=== PATIENT | male | born 1995 ===

== ENCOUNTER 2018-05-26 12:42 | Emergency (ER) | payer SELFPAY ==
[2018-05-26 12:47] VITALS: RESP 16
[2018-05-26] MEDS ORDERED: Oxycodone/Acetaminophen 5/325 mg Tab PO STA ×2 (12:55→14:28)
[2018-05-26] MEDS ORDERED: Oxycodone/Acetaminophen 5/325 mg Tab ONE ×2 (13:12→14:31)
--- NOTE | 2018-05-26 13:12 | ED PDOC ---
Upper Extremity Pain/Injury Time Seen by Provider: 05/26/18 12:50 Chief Complaint (Nursing): Abnormal Skin Integrity Chief Complaint (Provider): Right Hand Injury History Per: Patient, [employer] Executive ([place], #[id number]) History/Exam Limitations: no limitations Onset/Duration Of Symptoms: Mins (just prior to arrival) Current Symptoms Are (Timing): Still Present Additional Complaint(s): 22 year old male presents to the ED for evaluation of a right hand injury. Patient reports that just prior to arrival, he was at work on a ladder when he was about to slip, so he grabbed on to a metal surface above him, causing lacerations to his right middle and ring digits. Denies other injuries. Right hand dominant Tetanus up to date (updated approx. 1 month ago) PMD: none provided Past Medical History Reviewed: Historical Data, Nursing Documentation, Vital Signs Vital Signs: Last Vital Signs Temp 98.7 F 05/26/18 12:45 Pulse 87 05/26/18 12:45 Resp 16 05/26/18 12:45 BP 131/66 05/26/18 12:45 Pulse Ox 98 05/26/18 12:45 - Medical History PMH: No Chronic Diseases - Surgical History Surgical History: No Surg Hx - Family History Family History: States: Unknown Family Hx - Social History Current smoker - smoking cessation education provided: No Alcohol: None Drugs: Denies - Immunization History Hx Tetanus Toxoid Vaccination: Yes - Home Medications Home Medications: Ambulatory Orders Medication Instructions Recorded Amoxicillin/Clavulanate [Augmentin 1 tab PO BID #20 tab 05/26/18 875 MG-125 MG] RX: Ibuprofen [Motrin Tab] 800 mg PO TID PRN #12 tab 05/26/18 - Allergies Allergies/Adverse Reactions: Allergies Allergy/AdvReac Type Severity Reaction Status Date / Time No Known Allergies Allergy Verified 05/26/18 12:44 Review of Systems ROS Statement: Except As Marked, All Systems Reviewed And Found Negative Skin: Positive for: Other (right middle finger and ring finger lacerations ) Physical Exam - Reviewed Nursing Documentation Reviewed: Yes Vital Signs Reviewed: Yes - Physical Exam Extremity: Positive for: Normal ROM (full ROM actively of all digits right hand), Capillary Refill (less than 2 seconds), Other (1cm flap laceration on palmar surface of proximal phalanx of right fourth digit with no active bleeding; 2cm avulsion laceration on palmar surface of right third digit on middle phalanx extending over the third mcp) - ECG O2 Sat by Pulse Oximetry: 98 (RA) Pulse Ox Interpretation: Normal - Radiology X-Ray: Interpreted by Me (R hand x-ray) X-Ray Interpretation: No Acute Disease (confirmed by radiology report) Medical Decision Making Medical Decision Making: Time: 1255 Initial Impression: right hand injury Initial Plan: --Percocet 1 tab PO --Right hand XR 1315 XR reviewed by HOLLIS: no fracture or foreign body [address] Aguayo who requested pictures be sent. [address] Aguayo received the pictures, he advised a surgical orderly come down for wound closure. Spoke with surgical orderly Dr. Solis who is agreeable to evaluate pt in ED. 1408 Used medical services manager #[id number] to inform pt that a specialist is agreeable to come down to evaluate his hand. All questions answered and patient verbalizes agreement with plan. [address] Solis at bedside and performed suture repair. Requests pt. be prescribed Augmentin and to f/u with Dr. Aguayo in 1 week. Advised to f/u with Dr. Aguayo in 1 week for further evaluation. Wound care instructions provided. Scribe Attestation: Documented by Yaquelin Ching, acting as a scribe for Vinod Gross PA-C. Provider Scribe Attestation: All medical record entries made by the Scribe were at my direction and personal ly dictated by me. I have reviewed the chart and agree that the record accurately reflects my personal performance of the history, physical exam, medical decision making, and the department course for this patient. I have also personally directed, reviewed, and agree with the discharge instructions and disposition. Disposition - Clinical Impression Clinical Impression: Finger laceration - Patient ED Disposition Is Patient to be Admitted: No - Disposition Referrals: Girish Aguayo MD [Staff Provider] - [facility] [Outside] [facility] [address] [Outside] Disposition: Routine/Home Disposition Time: 16:20 Condition: STABLE Additional Instructions: FOLLOW UP WITH DR. AGUAYO IN 1 WEEK PREVIOUSLY SCHEDULED RETURN TO ED IMMEDIATELY FOR ANY CONCERNS OR QUESTIONS. LOC NOVOA, thank you for letting us take care of you today. Your provider was Howard Rapp MD and you were treated for WC;RT HAND INJURY. The emergency medical care you received today was directed at your acute symptoms. If you were prescribed any medication, please fill it and take as directed. It may take several days for your symptoms to resolve. Return to the Emergency Department if your symptoms worsen, do not improve, or if you have any other problems. Please contact your doctor or call one of the physicians/clinics you have been referred to that are listed on the Patient Visit Information form that is included in your discharge packet. Bring any paperwork you were given at discharge with you along with any medications you are taking to your follow up visit. Our treatment cannot replace ongoing medical care by a primary care provider outside of the emergency department. Thank you for allowing the [facility] team to be part of your care today. If you had an X-Ray or CT scan: A Radiologist will review the ED reading if any change in treatment is needed we will contact you. If you had a blood, urine, or wound culture: It will take several days for the results, if any change in treatment is needed we will contact you. If you had an STI test: It will take 48 hours for the results. Please call after 1 week if you have not heard back. Prescriptions: Amoxicillin/Clavulanate [Augmentin 875 MG-125 MG] 1 tab PO BID #20 tab RX: Ibuprofen [Motrin Tab] 800 mg PO TID PRN #12 tab PRN Reason: Pain Instructions: Wound Care (DC), Laceration Repair With Stitches (DC) Forms: [facility] ED School/Work Excuse Print Language: GERMAN
[2018-05-26] MEDS ORDERED: Lidocaine Hydrochloride 1% 10 ML ONE ×2 (14:24→15:47)
[2018-05-26] MEDS ORDERED: Cellulose Hemostat 2X3 Sheet TP ONE ×2 (14:37→14:43)
--- NOTE | 2018-05-26 14:53 | RAD ---
PROCEDURE: Right Hand Radiographs. HISTORY: trauma COMPARISON: None. FINDINGS: Exam limited by patient's inability to extend the fingers adequately. BONES: No acute fracture or destructive bony lesion identified. JOINTS: Normal. No osteoarthritic changes. SOFT TISSUES: Normal. OTHER FINDINGS: None. IMPRESSION: No acute fracture dislocation right hand. Exam limited by inability of patient to adequately extend the fingers diffusely.
[2018-05-26 16:51] VITALS: BP 128/68; PULSE 82; TEMP 98.6; O2SAT 98
--- NOTE | 2018-05-27 07:19 | CP.PCM.CON ---
History of Present Illness - History of Present Illness History of Present Illness: Hand Surgery Consult note- Dr. Steward Reason for Consult: Laceration of R. hand 3rd and 4th digit 22M no significant pmhx presents to [facility] ED after sustaining laceration of finger while at work ladder slipped out of his hands. X-rays were performed which showed no retained foreign body. Hand surgery was consulted for evaluation and closure of hand PMH: denies PSH: denies ALL: NKDA SocialHx: denies toabcco, etoh, recreatioanl drug use FH: non-contributory Review of Systems - Review of Systems All systems: reviewed and no additional remarkable complaints except - Constitutional Constitutional: As Per HPI Past Patient History - Past Social History Alcohol: None Drugs: Denies - PSYCHIATRIC Hx Substance Use: No - SURGICAL HISTORY Hx Surgeries: No Meds Home Medications: Home Medication List Medication Instructions Recorded Confirmed Type Amoxicillin/Clavulanate [Augmentin 1 tab PO BID #20 tab 05/26/18 Rx 875 MG-125 MG] Ibuprofen [Motrin Tab] 800 mg PO TID PRN #12 tab 05/26/18 Rx Allergies/Adverse Reactions: Allergies Allergy/AdvReac Type Severity Reaction Status Date / Time No Known Allergies Allergy Verified 05/26/18 12:44 Physical Exam - Constitutional Appears: Non-toxic, No Acute Distress - Eye Exam Eye Exam: EOMI. absent: Scleral icterus - ENT Exam ENT Exam: Mucous Membranes Moist - Respiratory Exam Respiratory Exam: absent: Accessory Muscle Use, Respiratory Distress - Cardiovascular Exam Cardiovascular Exam: REGULAR RHYTHM. absent: Bradycardia, Tachycardia - GI/Abdominal Exam GI & Abdominal Exam: Soft. absent: Distended, Firm, Guarding, Tenderness - Extremities Exam Additional comments: Right hand 3rd digit (middle finger) 3 areas of pulsitile bleeding, with skin promixmal third completely avulsed skin. 4th (ring finger) promxial skin tear, no active bleeding distal finger tip sensation NOT intact. active ROM intact - Neurological Exam Neurological exam: Alert, Oriented x3 - Skin Skin Exam: Intact, Normal Color Results - Vital Signs Recent Vital Signs: Last Vital Signs Temp 98.6 F 05/26/18 16:40 Pulse 82 05/26/18 16:40 Resp 16 05/26/18 16:40 BP 128/68 05/26/18 16:40 Pulse Ox 98 05/26/18 23:48 Assessment & Plan - Assessment and Plan (Free Text) Assessment: 22M w/ Right hand 3rd and 4th digit laceration w/ active bleeding XRAY: no fracture, no retained body Plan: - Copiously irrigate with Peroxide and betadine - suture ligate bleeding vessels w/ chromic - approximate skin edges w/ 3-0 chromic - cover w/ surgicel, xeroform, 2x2, 4x4, krillex and acebandage - keep are dry - follow up in clinic w/ Dr. Steward - discussed w/ Dr. Steward surgical attending [facility] PGY2 PROCEDURES - Laceration lidocaine 1% simple, single layer flap irrigated extensively right hand 4-0 chromic nerve block simple, interrupted Site: hand Side (if applicable): right Size (cm): 4 Depth: simple, single layer Anesthesia used: lidocaine 1% Anesthesia technique: nerve block (median nerve block, digistal nerve block) Amount (mLs): 8 Pre-repair: wound explored, irrigated extensively, deep structures intact Skin layer closed with: chromic Size: 3-0 Number of sutures: 4 Technique: simple, interrupted Size: 3-0 Number of sutures: 2 Technique: other (suture ligate)
== END 2018-05-26 16:40 | disposition home or self-care (01) ==
LOC: H.ER 12:42
DX: S61.212A Laceration without foreign body of right middle finger without damage to nail, initial encounter (principal); S61.214A Laceration without foreign body of right ring finger without damage to nail, initial encounter; W45.8XXA Other foreign body or object entering through skin, initial encounter; Y99.0 Civilian activity done for income or pay